=== PATIENT | male | born 1970 | race Caucasian/White ===

== ENCOUNTER 2023-10-22 07:07 | Day surgery (SDC) | payer OTHER ==
[2023-10-22] VITALS (16 sets, daily range): BP systolic 90–135; BP diastolic 56–79
[~2023-10-22] VITALS: Ht 185.4 cm; Wt 119.1 kg
[~2023-10-22 07:07] MED LIST: AMLO10 PO; ATOR40TA PO; CATAPRES0.1 MG PO; GABA100 PO; INSULIN PUMP; LOSARTAN-HCTZ1 EACH PO; Lactated Ringer's 1,000 ML IV SCH
[2023-10-22] MEDS ORDERED: propofoL 20 ML IV ONE (07:45)
--- NOTE | 2023-10-22 08:32 | NUR ---
10/22/23 0832 Yessenia Lopez HISTORY, CHART, MEDICATIONS AND ALLERGIES REVIEWED BEFORE START OF PROCEDURE. PATIENT CONFIRMS NPO STATUS AND AGREES WITH SCHEDULED PROCEDURE. 3-LEAD EKG REVIEWED WITH PHYSICIAN PRIOR TO START OF PROCEDURE. MONITOR INTACT WITH CONTINUOUS PULSE OXIMETRY,CAPNOGRAPHY, 3-LEAD EKG, INTERMITTENT BP. SUPPLEMENTAL O2 TO BE TITRATED THROUGHOUT PROCEDURE TO MAINTAIN O2 SATURATION ABOVE 90%. PATIENT DETERMINED TO BE ASA APPROPRIATE FOR PROPOFOL SEDATION PRIOR TO START OF PROCEDURE BY .MALLAMPATI CLASS 3 AIRWAY: VISUALIZATION OF ONLY THE BASE OF THE UVULA.
--- NOTE | 2023-10-22 09:36 | NUR ---
DISCHARGE PT A&04, VSS/RA, DRESSED SELF, DC INS PROVIDED/REP UNDERSTANDING, IV DC'D. LEFT FLOOR VIA WC WITH DC VOL WITH ALL PERSONAL POSSESSIONS TO GO HOME, FRIEND SEAMUS/INDUSTRIAL CUSTODIAN
== END 2023-10-22 09:45 | disposition home or self-care (01) ==
LOC: ORSCMMR 07:07 → ORD 08:30 → ORSCMMR 09:45
PROVIDERS: Internal Medicine Gastroenterology
PROC: 0DJD8ZZ Inspection of Lower Intestinal Tract, Via Natural or Artificial Opening Endoscopic (ICD-10-PCS; principal; 2023-10-22 08:30)
DX: Z12.11 Encounter for screening for malignant neoplasm of colon (principal); I10 Essential (primary) hypertension; E78.00 Pure hypercholesterolemia, unspecified; G62.9 Polyneuropathy, unspecified; E10.8 Type 1 diabetes mellitus with unspecified complications; Z79.4 Long term (current) use of insulin; Z79.899 Other long term (current) drug therapy
CPT/HCPCS: 82947; J2704; J7120